=== PATIENT | female | born 1970 | race Caucasian/White ===

== ENCOUNTER 2017-07-30 20:32 | Inpatient (IN) | payer OTHER ==
[~2017-07-30] VITALS: Ht 91.4 cm; Wt 5.0 kg
[2017-07-30] MEDS ORDERED: COZAAR25 MG (20:39)
[2017-08-03] MEDS ORDERED: LOSARTAN POTASS25 MG PO (10:19)
[2017-08-03] MEDS ORDERED: ZANTAC150 MG PO (10:19)
[2017-08-03] MEDS ORDERED: FLAGYL500MG PO (10:20)
[2017-08-03] MEDS ORDERED: CIPRO500 MG PO (10:20)
== END 2017-08-03 13:05 | disposition home or self-care (01) | DRG 392 ==
LOC: ER 20:32 → SURH 07-31 13:59 → SEC-K 07-31 13:59 → MEDI 07-31 15:51 → SURH 07-31 17:17
DX: K57.32 Diverticulitis of large intestine without perforation or abscess without bleeding (principal); E86.0 Dehydration; I10 Essential (primary) hypertension

== ENCOUNTER → 2017-11-16 | Day surgery (SDC) | payer OTHER ==
[~2017-11-16] MED LIST: CIPRO500 MG PO; COZAAR25 MG; FLAGYL500MG PO; LOSARTAN POTASS25 MG PO; ZANTAC150 MG PO
== END | disposition home or self-care (01) ==
LOC: ADM 11-10 14:00 → AMB-ENDOS 09:10
DX: K57.30 Diverticulosis of large intestine without perforation or abscess without bleeding (principal)

== ENCOUNTER 2018-07-04 06:00 | Day surgery (SDC) | payer OTHER | END 2018-07-04 11:15 | disposition home or self-care (01) | LOC: CIR.AMB 06:00 | DX: N39.3 Stress incontinence (female) (male) (principal) | CPT/HCPCS: 57288; C1771 ==

== ENCOUNTER 2020-06-15 08:06 | Outpatient (CLI) | payer OTHER | END 2020-06-15 08:16 | disposition home or self-care (01) | LOC: SONOGRAMA 08:06 | PROVIDERS: ATTEND Surgery | DX: K76.0 Fatty (change of) liver, not elsewhere classified (principal); K57.32 Diverticulitis of large intestine without perforation or abscess without bleeding; K81.1 Chronic cholecystitis ==

== ENCOUNTER 2020-06-18 06:48 | Day surgery (SDC) | payer OTHER | END 2020-06-18 12:00 | disposition home or self-care (01) | LOC: AMB-ENDOS 06:48 | PROVIDERS: ATTEND Surgery | DX: D13.0 Benign neoplasm of esophagus (principal); D13.2 Benign neoplasm of duodenum; K44.9 Diaphragmatic hernia without obstruction or gangrene; Z20.828 Contact with and (suspected) exposure to other viral communicable diseases ==

== ENCOUNTER 2020-06-22 08:57 | Outpatient (CLI) | payer OTHER | END 2020-06-22 09:09 | disposition home or self-care (01) | LOC: NUCLEAR 08:57 | PROVIDERS: ATTEND Surgery | DX: K57.32 Diverticulitis of large intestine without perforation or abscess without bleeding (principal); K81.1 Chronic cholecystitis | CPT/HCPCS: 78226; A9537 ==

== ENCOUNTER 2021-12-22 10:36 | Outpatient (CLI) | payer OTHER | END 2021-12-22 10:38 | disposition home or self-care (01) | LOC: NUCLEAR 10:36 | PROVIDERS: ATTEND General Practice | DX: M85.9 Disorder of bone density and structure, unspecified (principal); M81.8 Other osteoporosis without current pathological fracture ==

== ENCOUNTER 2021-12-22 10:37 | Outpatient (CLI) | payer OTHER | END 2021-12-22 10:39 | disposition home or self-care (01) | LOC: LAB 10:37 | PROVIDERS: ATTEND General Practice | DX: I10 Essential (primary) hypertension (principal); E03.9 Hypothyroidism, unspecified; E78.5 Hyperlipidemia, unspecified; N93.9 Abnormal uterine and vaginal bleeding, unspecified; E11.9 Type 2 diabetes mellitus without complications ==

== ENCOUNTER 2021-12-22 10:41 | Outpatient (CLI) | payer OTHER | END 2021-12-22 10:45 | disposition home or self-care (01) | LOC: SONOGRAMA 10:41 | PROVIDERS: ATTEND General Practice | DX: N93.9 Abnormal uterine and vaginal bleeding, unspecified (principal) ==

== ENCOUNTER 2022-01-10 11:03 | Outpatient (CLI) | payer OTHER | END 2022-01-10 11:06 | disposition home or self-care (01) | LOC: MAMO-SONO 11:03 | PROVIDERS: ATTEND Obstetrics & Gynecology | DX: Z12.31 Encounter for screening mammogram for malignant neoplasm of breast (principal); N64.4 Mastodynia ==

== ENCOUNTER → 2022-01-10 13:41 | Outpatient (CLI) | payer OTHER | END | disposition home or self-care (01) | LOC: LAB 09:47 | PROVIDERS: ATTEND Obstetrics & Gynecology | DX: N91.1 Secondary amenorrhea (principal); E16.1 Other hypoglycemia; R79.89 Other specified abnormal findings of blood chemistry ==

== ENCOUNTER → 2023-02-15 10:23 | Outpatient (CLI) | payer OTHER ==
[2023-02-15 09:24] LABS: HEMOGLOBIN 12.8 g/dL (12.0-15.00); MEAN CORPUSCULAR HEMOGLOBIN 28.6 pg (27.00-32.0); MEAN CORPUSCULAR HGB CONC 33.7 g/dl (32.0-36.0); PLATELET COUNT 357 K/uL (150-450); RED BLOOD COUNT 4.47 M/uL (4.00-6.00); RED CELL DISTRIBUTION WIDTH 13.5 % (11.5-14.5)
[2023-02-15 10:23] LABS: ALBUMIN 3.5 gm/dL (3.4-5.0); BILIRUBIN TOTAL 0.69 mg/dL (0.3-1.2); CALCIUM 8.7 mg/dL (8.5-10.1); CREATININE SERUM 0.56 mg/dL (0.55-1.02); GFR 114.13; GLOBULINA 3.1 G/DL (2.4-3.5); POTASSIUM 4.57 mEq/L (3.5-5.1); TOTAL PROTEIN 6.6 gm/dL (6.4-8.2)
== END | disposition home or self-care (01) ==
LOC: LAB 08:03
PROVIDERS: ATTEND Obstetrics & Gynecology
DX: R73.01 Impaired fasting glucose (principal); E78.00 Pure hypercholesterolemia, unspecified; D50.0 Iron deficiency anemia secondary to blood loss (chronic); E03.8 Other specified hypothyroidism; N91.1 Secondary amenorrhea; E16.1 Other hypoglycemia; R79.89 Other specified abnormal findings of blood chemistry

== ENCOUNTER 2023-02-15 11:02 | Outpatient (CLI) | payer OTHER | END 2023-02-15 11:10 | disposition home or self-care (01) | LOC: SONOGRAMA 11:02 | PROVIDERS: ATTEND Obstetrics & Gynecology | DX: Z12.31 Encounter for screening mammogram for malignant neoplasm of breast (principal); N60.22 Fibroadenosis of left breast; N60.21 Fibroadenosis of right breast; D25.1 Intramural leiomyoma of uterus ==